=== PATIENT | female | born 1950 | race Caucasian/White ===

== ENCOUNTER 2021-05-14 14:43 | Outpatient (CLI) | payer MEDICARE, OTHER | END 2021-05-14 14:44 | disposition home or self-care (01) | LOC: MADLAB 14:43 → EDSEX 14:43 → MADRAD 14:44 | PROVIDERS: ATTEND Nurse Practitioner Family | DX: S83.411A Sprain of medial collateral ligament of right knee, initial encounter (principal); S80.01XA Contusion of right knee, initial encounter ==